=== PATIENT | female | born 1960 | race American Indian/Alaskan Native ===

== ENCOUNTER 2020-02-02 20:27 | Emergency (ER) | payer SELFPAY ==
[2020-02-02 20:59] VITALS: BP 195/118
== END 2020-02-03 03:17 | disposition left against medical advice (07) ==
LOC: ED 20:27
DX: K08.89 Other specified disorders of teeth and supporting structures (principal); Z53.21 Procedure and treatment not carried out due to patient leaving prior to being seen by health care provider